=== PATIENT | male | born 1950 | race Caucasian/White ===

== ENCOUNTER 2016-07-23 22:23 | Emergency (ER) | payer OTHER ==
--- NOTE | 2016-07-23 23:06 | PROVIDER DOCUMENTATION ---
HPI-Male Problem - General Chief Complaint: Flank Pain Stated Complaint: KIDNEY STONE Time Seen by Provider: 07/23/16 22:45 Source: patient Allergies/Adverse Reactions: Patient Allergies Allergy/AdvReac Type Severity Reaction Status Date / Time No Known Allergies Allergy Verified 07/23/16 23:03 Home Medications: Home Meds Unobtainable 07/23/16 - History of Present Illness-Male Nature of Presenting Problem: Pt is a 66 yom who presents to ER with CC of urinary retention secondary to passing a kidney stone. 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 Location of Complaint: reports: scrotal Quality of Pain: reports: none Severity in ED: reports: mild Onset/Duration: reports: 1 hour ago Timing: reports: still present Context/Activities at Onset: reports: other (urinating) Urinary Symptoms: reports: anuria, retention. denies: hematuria Associated Symptoms: reports: other ("Think there's a stone in my urethra") Associated Symptoms: reports: other (anuria) Review of Systems - Adult - REVIEW OF SYSTEMS - ADULT Constitutional: denies: chills, fever, fatique Eyes: reports: no symptoms reported Ears, Nose, Mouth & Throat: reports: no symptoms reported Cardiovascular: reports: no symptoms reported Respiratory: reports: no symptoms reported Gastrointestinal: reports: no symptoms reported Genitourinary: reports: urinary retention, other (anuria after passing a kidney stone). denies: dysuria, frequency, flank pain, hematuria, hesitency, incontinence, urgency Musculoskeletal: reports: no symptoms reported Integumentary: reports: no symptoms reported Neurological: reports: no symptoms reported Psychiatric: reports: no symptoms reported Endocrine: reports: no symptoms reported Hematologic/Lymphatic: reports: no symptoms reported Allergic/Immunologic: reports: no symptoms reported All Other Systems: Reviewed and Negative Past History - Adult - PAST MEDICAL HISTORY-ADULT Review of Records: reports: Nursing Assessment Review, Medications Reviewed - IMMUNIZATION STATUS Childhood Immunizations: See Nurse Assessment Flu Vaccine: See Nurse Assessment Physical Exam-General - PHYSICAL EXAM-ADULT Initial Vital Signs Reviewed: Yes - CONSTITUTIONAL General Appearance: appears well, alert, mild distress - RESPIRATORY Respiratory: chest non-tender, lungs clear, normal breath sounds - CARDIOVASCULAR Cardiovascular: normal peripheral pulses, regular rate, rhythm - GASTROINTESTINAL (ABDOMEN) Abdominal Exam: normal bowel sounds, non tender, soft - GENITOURINARY Male Genitalia: normal genitalia, circumcised - LYMPHATIC Lymphatic: no adenopathy - MUSCULOSKELETAL Back Exam: no CVA tenderness, no vertebral tenderness Extremity: normal range of motion, non-tender, normal gait - SKIN Integumentary: normal color, normal turgor, warm/dry - NEUROLOGIC Neurologic: grossly normal, no motor/sensory deficits - PSYCHIATRIC Psych/Mental Status: normal mood/affect, normal thought content, normal thought process, oriented x 3 Progress - PLAN OF CARE/RESULTS Progress/Plan/Lab Results: Vital Signs - 24 hr 07/23/16 22:26 Temperature 97.8 F Pulse Rate 66 Respiratory 18 Rate Blood Pressure 172/83 O2 Sat by Pulse 100 Oximetry Orders Category Date Time Status Bladder Scan and Record Result ORDERED Care 07/23/16 23:00 Active CBC WITH ELECTRONIC DIFF [HEME] Stat Lab 07/23/16 23:30 Completed COMPREHENSIVE METABOLIC PANEL [CHEM] Stat Lab 07/23/16 23:30 Completed URINALYSIS W/POSS RFLX CULT [URINALYSIS] Stat Lab 07/23/16 23:05 Completed Sulfamethoxazole/Tmp D.s. [Septra Ds] Med 07/24/16 00:11 Once 1 each PO NOW ONE Laboratory Tests 07/23/16 07/23/16 07/23/16 23:05 23:30 23:30 WBC 6.51 RBC 4.34 L Hgb 13.8 L Hct 40.9 L MCV 94.2 MCH 31.8 H MCHC 33.7 RDW Std Deviation 12.6 Plt Count 210 MPV 10.9 H Immature Gran % (Auto) 0.0 Neut % (Auto) 65.1 Lymph % (Auto) 23.2 Dent % (Auto) 9.7 H Eos % (Auto) 1.7 Baso % (Auto) 0.3 Immature Gran # (Auto) 0.00 Neut # (Auto) 4.24 Lymph # (Auto) 1.51 Dent # (Auto) 0.63 H Eos # (Auto) 0.11 Baso # (Auto) 0.02 Sodium 144 Potassium 4.6 Chloride 105 Carbon Dioxide 28 Anion Gap 11 BUN 15 Creatinine 1.2 Estimated GFR/1.73 m2 60 BUN/Creatinine Ratio 13 Glucose 101 Calculated Osmolality 288 Calcium 9.4 Total Bilirubin 0.61 AST 14 ALT 11 Alkaline Phosphatase 69 Total Protein 6.5 Albumin 4.1 Globulin 2.4 Albumin/Globulin Ratio 1.7 Urine Source CLEAN CATCH Urine Color YELLOW Urine Turbidity CLEAR Urine pH 7.0 Ur Specific [place] 1.015 Urine Protein NEGATIVE Ur Glucose (Stick) NEGATIVE Ur Ketones (Stick) NEGATIVE Urine Blood NEGATIVE Urine Nitrite NEGATIVE Urine Bilirubin NEGATIVE Urobilinogen Dipstick NORMAL Urine Leukocytes NEGATIVE Urine WBC (Auto) <10 Urine RBC (Auto) <10 U Epithel Cells (Auto) <10 Urine Bacteria (Auto) NEGATIVE - REASSESSMENT Reassessment #1 Time Reassessed: 23:32 (Pt reports passing 2 kidney stones; One stone was approxiamtely 6mm in diameter and the other was approximately 2mm in diameter) Status: improving Departure - Departure Time of Disposition Order: 00:11 DIAGNOSIS: Urethral calculus Disposition: HOME 01 Certified Medical Emergency: Emergent Condition: Stable Additional Instructions: Follow up with Urologist. ED Follow Up Instructions: You have been treated by a care provider in the Emergency Department. These instructions are being provided to you so you can have an understanding of how to care for yourself upon discharge. Upon discharge from the Emergency Department, you are responsible for making arrangements for follow-up care by a physician of your choice. Take all prescribed medications as directed. Return to the Emergency Department immediately for any new or worsening symptoms. You may call the Physician Referral phone number at [phone] to obtain a list of Physicians who are taking new patients. Attestation - Scribe Verification/Attestation Scribe:: Juan Burrell Acting as Scribe for:: Rayshawn Shaikh Scribe documention review:: This chart was documented by a scribe and accurately reflects the service the provider performed and the decisions made by the provider.
[2016-07-23 23:32] LABS: URINE CULTURE NEEDED? NO; URINE MICRO REVIEW NEEDED? NO; URINE SOURCE CLEAN CATCH
[2016-07-23 23:32] LABS: MANUAL DIFF NEEDED? NO
[2016-07-23 23:38] LABS: BILIRUBIN URINE NEGATIVE (NEGATIVE); BLOOD URINE NEGATIVE (NEGATIVE); COLOR YELLOW; GLUCOSE URINE NEGATIVE (NEGATIVE); LEUKOCYTES URINE NEGATIVE (NEGATIVE); NITRITE URINE NEGATIVE (NEGATIVE); PROTEIN URINE NEGATIVE (NEGATIVE); SP GRAVITY URINE 1.015; TURBIDITY URINE CLEAR (CLEAR); UR EPITHELIAL CELLS <10 /HPF (<10); URINE BACTERIA NEGATIVE /HPF; URINE RBC <10 /HPF (<10); URINE WBC <10 /HPF (<10); UROBILINOGEN URINE NORMAL (NORMAL)
[2016-07-23 23:39] LABS: BASO% 0.3 % (0.0-0.8); EOS# 0.11 X1000 (0.0-0.7); EOS% 1.7 % (0.0-10.0); HEMATOCRIT 40.9 % (42.0-52.0); HEMOGLOBIN 13.8 g/dL (14.0-18.0); LYMPH# 1.51 X1000 (1.2-3.4); LYMPH% 23.2 % (20.5-51.1); MCH 31.8 PG (27-31); MCHC 33.7 g/dL (33-37); MCV 94.2 FL (81-99); MONO# 0.63 X1000 (0.11-0.59); MONO% 9.7 % (1.7-9.3); MPV 10.9 FL (7.4-10.4); NEUT% 65.1 % (42.2-75.2); PLT 210 X1000 (130-400); RBC 4.34 XMIL (4.7-6.1)
[2016-07-24] LABS: ALBUMIN 4.1 g/dL (3.5-5.0); CALCIUM 9.4 mg/dL (8.8-10.2); POTASSIUM 4.6 mmol/L (3.5-5.1); TOTAL BILIRUBIN 0.61 mg/dL (0.20-1.00); TOTAL PROTEIN 6.5 g/dL (6.3-8.3)
[2016-07-24] MEDS ORDERED: SEPTRA DS PO ONE (00:11)
[2016-07-24 00:37] VITALS: BP 141/59
== END 2016-07-24 00:32 | disposition home or self-care (01) ==
LOC: ED 22:23
DX: N21.1 Calculus in urethra (principal); R33.9 Retention of urine, unspecified; R34 Anuria and oliguria; Z87.442 Personal history of urinary calculi
CPT/HCPCS: 36415; 51798; 80053; 81001; 85025; 99283